=== PATIENT | male | born 1995 | race Caucasian/White ===

== ENCOUNTER 2020-05-22 17:31 | Emergency (ER) | payer OTHER ==
[2020-05-22 17:53] VITALS: BMI 43.5
[2020-05-22] MEDS ORDERED: ACETAMINOPHEN 1000 MG/100 ML VIAL (NON FORMULARY) IVPB ONE (18:15)
[2020-05-22] MEDS ORDERED: SODIUM CHLORIDE 1,000 ML IV STA (18:36)
[2020-05-22] MEDS ORDERED: ACETAMINOPHEN INJECTION 100 ML IVPB ONE (18:54)
[2020-05-22 19:07] LABS: BASO % 0.5 % (0-2.0); EOS % 0.2 % (0-4.5); HEMATOCRIT 43.8 % (35.4-49); HEMOGLOBIN 15.1 GM/dL (11.7-16.9); LYMPH % 15.6 % (8-40); MCH 31.8 pg (25.7-33.7); MCHC 34.4 g/dl (32.0-35.9); MEAN CELL VOLUME 92.6 fl (80-96); MEAN PLT VOLUME 8.5 fl (7.5-11.1); MONO % 7.6 % (3.8-10.2); NEUT % 76.1 % (42.8-82.8); PLATELET COUNT 254 K/MM3 (134-434); RBC 4.73 M/mm3 (4.00-5.60); RDW 13.6 % (11.9-15.9)
[2020-05-22 19:25] LABS: POTASSIUM 4.2 mmol/L (3.5-5.1)
[2020-05-22 19:28] LABS: ALBUMIN 4.2 g/dl (3.4-5.0); BLOOD UREA NITROGEN 11.2 mg/dL (7-18); MAGNESIUM 2.1 mg/dL (1.8-2.4)
[2020-05-22 19:31] LABS: CREATININE 1.1 mg/dL (0.55-1.3)
[2020-05-22 19:32] LABS: BILIRUBIN,TOTAL 1.4 mg/dL (0.2-1)
[2020-05-22 19:33] LABS: TOT PROT 8.3 g/dl (6.4-8.2)
[2020-05-22 22:31] VITALS: BP 136/77; PULSE 98; TEMP 97.9
== END 2020-05-22 22:31 | disposition home or self-care (01) ==
LOC: JER 17:31
PROC: 3E0333Z Introduction of Anti-inflammatory into Peripheral Vein, Percutaneous Approach (ICD-10-PCS; principal; 2020-05-22)
PROC: 3E0337Z Introduction of Electrolytic and Water Balance Substance into Peripheral Vein, Percutaneous Approach (ICD-10-PCS; 2020-05-22)
DX: K83.9 Disease of biliary tract, unspecified (principal)
CPT/HCPCS: 36415; 71045-TC-FY; 76705-TC; 80053; 83605; 83690; 83735; 85025; 93005; 93010; 99285-25; C9803; J0131; U0003

== ENCOUNTER 2020-05-29 10:52 | Inpatient (IN) | payer OTHER ==
[2020-05-29 11:04] VITALS: TEMP 98.5; BMI 40.1
[2020-05-29] MEDS ORDERED: KETOROLAC TROMETHAMINE 30 MG/1 ML VIAL IVPUSH ONE (11:37)
[2020-05-29] MEDS ORDERED: KETOROLAC TROMETHAMINE 30 MG/1 ML VIAL ONE (11:42)
[2020-05-29 13:07] LABS: BASO % 0.4 % (0-2.0); EOS % 1.1 % (0-4.5); HEMATOCRIT 45.4 % (35.4-49); LYMPH % 14.4 % (8-40); MCH 30.4 pg (25.7-33.7); MEAN CELL VOLUME 92.1 fl (80-96); MEAN PLT VOLUME 9.3 fl (7.5-11.1); MONO % 5.3 % (3.8-10.2); NEUT % 78.8 % (42.8-82.8); PLATELET COUNT 308 K/MM3 (134-434); RBC 4.92 M/mm3 (4.00-5.60); RDW 13.6 % (11.9-15.9); WHITE BLOOD COUNT 11.1 K/mm3 (4.0-10.0)
[2020-05-29 13:30] LABS: BLOOD UREA NITROGEN 9.1 mg/dL (7-18); CALCIUM 9.4 mg/dL (8.5-10.1)
[2020-05-29 13:35] LABS: BILIRUBIN,TOTAL 0.7 mg/dL (0.2-1); TOT PROT 8.9 g/dl (6.4-8.2)
[2020-05-29 13:49] LABS: POTASSIUM 7.3 mmol/L (3.5-5.1)
[2020-05-29 14:58] LABS: POTASSIUM 4.6 mmol/L (3.5-5.1)
[2020-05-29 14:59] LABS: CALCIUM 9.3 mg/dL (8.5-10.1)
[2020-05-29 15:00] LABS: BLOOD UREA NITROGEN 9.2 mg/dL (7-18)
[2020-05-29 15:03] LABS: CREATININE 0.8 mg/dL (0.55-1.3)
[2020-05-29] MEDS ORDERED: SODIUM CHLORIDE 1,000 ML IV SCH (15:15)
[2020-05-29] MEDS ORDERED: ACETAMINOPHEN 1000 MG/100 ML VIAL (NON FORMULARY) IVPB PRN (15:19)
[2020-05-29 17:59] VITALS: BP 132/89; PULSE 94
== END 2020-05-29 18:00 | disposition left against medical advice (07) ==
LOC: JER 10:52 → JERBED 15:57
PROVIDERS: ADMIT Internal Medicine; ATTEND Internal Medicine
DX: K80.80 Other cholelithiasis without obstruction (principal); R10.11 Right upper quadrant pain; U07.1 COVID-19
CPT/HCPCS: 36415; 76705-TC; 80048; 80053; 83690; 85025; 99285-25; C9803; U0003

== ENCOUNTER 2020-11-16 14:58 | Inpatient (IN) | payer OTHER ==
[2020-11-16] MEDS ORDERED: ACETAMINOPHEN 1000 MG/100 ML VIAL (NON FORMULARY) IVPB ONE (15:34)
[2020-11-16] MEDS ORDERED: LACTATED RINGERS SOLUTION 1000 ML INFUS.BAG IV ONE (15:34)
[2020-11-16] MEDS ORDERED: ACETAMINOPHEN INJECTION 100 ML IVPB ONE (15:38)
[2020-11-16 15:56] LABS: BASO % 0.6 % (0-2.0); EOS % 2.3 % (0-4.5); HEMATOCRIT 46.5 % (35.4-49); HEMOGLOBIN 15.7 GM/dL (11.7-16.9); LYMPH % 44.5 % (8-40); MCH 32.1 pg (25.7-33.7); MCHC 33.8 g/dl (32.0-35.9); MEAN CELL VOLUME 95.1 fl (80-96); MEAN PLT VOLUME 8.9 fl (7.5-11.1); MONO % 6.8 % (3.8-10.2); NEUT % 45.8 % (42.8-82.8); PLATELET COUNT 280 K/MM3 (134-434); RBC 4.88 M/mm3 (4.00-5.60); RDW 14.2 % (11.9-15.9); WHITE BLOOD COUNT 7.2 K/mm3 (4.0-10.0)
[2020-11-16 16:04] LABS: INR 1.1 (0.83-1.09); PROTHROMBIN TIME (PATIENT) 13.5 SEC (9.7-13.0)
[2020-11-16 16:06] LABS: ACTIVATED PTT 26.3 SECONDS (25.2-36.5)
[2020-11-16 16:08] LABS: ALBUMIN 4.3 g/dl (3.4-5.0); CALCIUM 9.5 mg/dL (8.5-10.1)
[2020-11-16 16:12] LABS: CREATININE 1.1 mg/dL (0.55-1.3)
[2020-11-16 16:13] LABS: TOT PROT 8.4 g/dl (6.4-8.2)
[2020-11-16] MEDS ORDERED: FAMOTIDINE 20 MG/50 ML IVPB 20 MG/50 ML MG IVPB ONE ×2 (16:23→16:35)
[2020-11-16] MEDS ORDERED: MAG HYDROX/AL HYDROX/SIMETH 30 ML UNIT-DOSE CUP PO ONE (16:23)
[2020-11-16] MEDS ORDERED: MAG HYDROX/AL HYDROX/SIMETH 30 ML UNIT-DOSE CUP ONE (16:34)
[2020-11-16] MEDS ORDERED: PANTOPRAZOLE 40 MG TABLET PO SCH (18:30)
[2020-11-16] MEDS ORDERED: oxyCODONE HCL 5 MG TABLET PO PRN (18:39)
[2020-11-16] MEDS ORDERED: ACETAMINOPHEN 325 MG TABLET (FP) PO PRN (18:39)
[2020-11-16] MEDS ORDERED: ENOXAPARIN NA (PORCINE) 40 MG/0.4 ML DISP.SYRIN SQ ONE (18:51)
[2020-11-16] MEDS ORDERED: PANTOPRAZOLE 40 MG TABLET ONE (18:51)
[2020-11-16] MEDS: LACTATED RINGERS SOLUTION 1,000 ML/1,000 ML INFUS.BAG IV SCH (18:58)
[2020-11-16] MEDS: ENOXAPARIN NA (PORCINE) 40 MG/0.4 ML DISP.SYRIN SQ SCH (18:59)
[2020-11-17 03:31] VITALS: BMI 33.3
[2020-11-17] MEDS: LACTATED RINGERS SOLUTION 1,000 ML/1,000 ML INFUS.BAG IV SCH (05:01)
[2020-11-17] MEDS ORDERED: LACTATED RINGERS SOLUTION 1,000 ML/1,000 ML INFUS.BAG IV SCH (09:17)
[2020-11-17] MEDS ORDERED: PANTOPRAZOLE SODIUM 40 MG VIAL IVPUSH SCH (10:00)
[2020-11-17] MEDS ORDERED: IBUPROFEN 800 MG/8 ML IJ IVPB PRN (10:04)
[2020-11-17] MEDS ORDERED: ONDANSETRON 4 MG/2 ML VIAL IVPUSH PRN ×4 (10:04→12:24)
[2020-11-17] MEDS ORDERED: MIDAZOLAM HCL 2 MG/2 ML SINGLE DOSE VIAL ONE (10:13)
[2020-11-17] MEDS ORDERED: fentaNYL CITRATE 250 MCG/5 ML VIAL ONE (10:13)
[2020-11-17] MEDS ORDERED: PROPOFOL 20 ML ONE ×2 (10:13)
[2020-11-17] MEDS ORDERED: ROCURONIUM BROMIDE 50 MG/5 ML SYRINGE ONE ×2 (10:13→10:55)
[2020-11-17] MEDS ORDERED: LIDOCAINE HCL/PF 2% SDV 5ML VIAL ONE (10:13)
[2020-11-17] MEDS ORDERED: ceFAZolin SODIUM 1 GM VIAL ONE (10:35)
[2020-11-17] MEDS ORDERED: BUPIVACAINE HCL 100 ML ONE (10:36)
[2020-11-17] MEDS ORDERED: ceFAZolin SODIUM 1 GM VIAL IVPB ONE (10:36)
[2020-11-17] MEDS ORDERED: DEXAMETHASONE SOD PHOSPHATE 4 MG/1 ML VIAL ONE (10:44)
[2020-11-17] MEDS ORDERED: ONDANSETRON 4 MG/2 ML VIAL ONE (10:44)
[2020-11-17] MEDS ORDERED: BUPIVACAINE HCL/PF 0.5% (5MG/ML) 10 ML VIAL NR ONE (11:29)
[2020-11-17] MEDS ORDERED: NEOSTIGMINE METHYLSULFATE 0.5 MG/1 ML - 10 ML MDV ONE (11:30)
[2020-11-17] MEDS ORDERED: GLYCOPYRROLATE 0.2 MG/1 ML VIAL ONE (11:30)
[2020-11-17] MEDS ORDERED: PROMETHAZINE HCL 25 MG/1 ML VIAL IVPUSH PRN ×2 (11:31→12:24)
[2020-11-17] MEDS: ENOXAPARIN NA (PORCINE) 40 MG/0.4 ML DISP.SYRIN SQ SCH (11:35)
[2020-11-17] MEDS ORDERED: LACTATED RINGERS SOLUTION 1,000 ML IV SCH (11:45)
[2020-11-17] MEDS ORDERED: ACETAMINOPHEN 325 MG TABLET (FP) PO PRN (12:13)
[2020-11-17] MEDS ORDERED: oxyCODONE HCL 5 MG TABLET PO PRN (12:15)
[2020-11-17] MEDS: LACTATED RINGERS SOLUTION 1,000 ML IV SCH (13:30)
[2020-11-17] MEDS: oxyCODONE HCL 5 MG TABLET PO PRN ×2 (14:56→21:07)
[2020-11-18] MEDS ORDERED: PANTOPRAZOLE SODIUM 40 MG VIAL IVPUSH SCH (10:00)
[2020-11-18] MEDS ORDERED: ENOXAPARIN NA (PORCINE) 40 MG/0.4 ML DISP.SYRIN SQ SCH (10:00)
[2020-11-18 11:31] VITALS: BP 116/73; PULSE 74; TEMP 97.8
[2020-11-18] MEDS: LACTATED RINGERS SOLUTION 1,000 ML IV SCH (12:30)
== END 2020-11-18 14:34 | disposition home or self-care (01) | DRG 263 ==
LOC: JER 14:58 → JERBED 16:52 → J5S 21:35 → UNDODISIN 11-17 17:33
PROVIDERS: ADMIT Internal Medicine; ATTEND Internal Medicine
PROC: 0FT44ZZ Resection of Gallbladder, Percutaneous Endoscopic Approach (ICD-10-PCS; principal; 2020-11-17 11:30)
DX: K80.64 Calculus of gallbladder and bile duct with chronic cholecystitis without obstruction (principal); E66.01 Morbid (severe) obesity due to excess calories; R16.0 Hepatomegaly, not elsewhere classified; R74.01 Elevation of levels of liver transaminase levels; Z68.33 Body mass index [BMI] 33.0-33.9, adult
CPT/HCPCS: 36415; 76705-TC; 80053; 83690; 85025; 85610; 85730; 86850; 86900; 86901; 88304-TC; 94760; 99285-25; C9803; J0131; U0003; U0005

== ENCOUNTER 2022-06-06 08:36 | Emergency (ER) | payer OTHER ==
[2022-06-06 08:44] VITALS: BP 127/66; PULSE 87; RESP 20; TEMP 98.3; BMI 41.9
[2022-06-06] MEDS ORDERED: LIDOCAINE 5% TOPICAL PATCH TP ONE (09:33)
[2022-06-06] MEDS ORDERED: KETOROLAC TROMETHAMINE 30 MG/1 ML VIAL IM ONE (09:33)
[2022-06-06] MEDS ORDERED: LIDOCAINE 5% TOPICAL PATCH ONE (09:38)
[2022-06-06] MEDS ORDERED: KETOROLAC TROMETHAMINE 30 MG/1 ML VIAL ONE (09:39)
== END 2022-06-06 11:45 | disposition home or self-care (01) ==
LOC: JERFT 08:36
PROC: 3E0233Z Introduction of Anti-inflammatory into Muscle, Percutaneous Approach (ICD-10-PCS; principal; 2022-06-06)
DX: S46.819A Strain of other muscles, fascia and tendons at shoulder and upper arm level, unspecified arm, initial encounter (principal); M54.2 Cervicalgia; X50.0XXA Overexertion from strenuous movement or load, initial encounter
CPT/HCPCS: 96372; 99284-25